=== PATIENT | male | born 1960 | race Caucasian/White ===

== ENCOUNTER 2023-01-09 09:40 | Day surgery (SDC) | payer OTHER ==
[~2023-01-09] VITALS: Ht 165.1 cm; Wt 83.5 kg
[2023-01-09] MEDS ORDERED: LIDOCAINE 2% 100 MG/5 ML UJET TP ONE (10:45)
[2023-01-09] MEDS: fentaNYL citrate 0.05 MG/ML VIAL ONE (10:59)
[2023-01-09] MEDS ORDERED: SIMETHICONE 40 MG/0.6 ML ONE (12:13)
== END 2023-01-09 12:30 | disposition home or self-care (01) ==
LOC: MDS 09:40 → MMU 09:40 → MDS 12:30
PROVIDERS: ATTEND Internal Medicine Gastroenterology
DX: Z12.11 Encounter for screening for malignant neoplasm of colon (principal); K63.5 Polyp of colon; I10 Essential (primary) hypertension; Z80.8 Family history of malignant neoplasm of other organs or systems; Z20.822 Contact with and (suspected) exposure to COVID-19; Z79.899 Other long term (current) drug therapy
CPT/HCPCS: 45385; 87426; J3010